=== PATIENT | female | born 1970 | race Caucasian/White ===

== ENCOUNTER 2021-08-02 13:58 | Emergency (ER) | payer MEDICARE, OTHER ==
[~2021-08-02] VITALS: Ht 165.1 cm; Wt 40.1 kg
[2021-08-02 14:11] VITALS: BP 136/89
--- NOTE | 2021-08-02 14:14 | PHYS DOC ---
Past History Past Medical History: Sinusitis, Other Past Surgical History: Tubal ligation Smoking: Cigarettes, Less than 1pk/day Alcohol Use: None Drug Use: Marijuana, Other General Adult HPI: HPI: Patient is a 51-year-old female coming in from home for shortness of breath. Patient has a history of end-stage COPD and was told she will need a double lung transplant. Patient was using her home inhaler without improvement. Is constantly on 2 to 5 L oxygen via concentrator. Patient does not had any recent sick contacts, illness, other triggers that would incite this. Last COPD exacerbation about 1 year ago. On EMS arrival patient was satting 88%, given a DuoNeb in route and states she is feeling some relief Review of Systems: Review of Systems: All other systems within normal limits except for as noted in the HPI Allergies: Allergies: Allergies Coded Allergies Type Severity Reaction Last Updated Verified No Known Drug Allergies 10/06/13 No Physical Exam: PE: Constitutional: Well developed, thin HENT: Normocephalic, atraumatic, bilateral external ears normal, nose normal. [] Eyes: PERRLA, conjunctiva normal, no discharge. [] Neck: No rigidity, supple, no stridor. [] Cardiovascular: Regular rate and rhythm, brisk cap refill [] Lungs & Thorax: Symmetric chest rise, tachypnea, bilateral diminished lung sounds without rhonchi or wheezes Abdomen: Soft, nondistended. Skin: Warm, dry, no erythema, no rash. [] Back: Unremarkable Extremities: No deformities, range of motion grossly intact, no lower extremity edema [] Neurologic: Alert and oriented X 3, no focal deficits noted. [] Psychologic: Affect normal, judgement normal, mood normal. [] EKG: EKG: [] Radiology/Procedures: Radiology/Procedures: [address] [address] IMAGING REPORT Signed PATIENT: LENY GUAN ACCOUNT: [id number] : 1970 LOCATION: ER AGE: 51 SEX: F EXAM STATUS: REG ER ORD. PHYSICIAN: VENKAT PARRISH MD REASON: copd PROCEDURE: CT CHEST WO CONTRAST EXAMINATION: CT Chest Without IV contrast. INDICATION:51 years, Female, COPD. COMPARISON: Same day chest radiograph. TECHNIQUE: Spiral CT was obtained from the jugular notch through the posterior costophrenic recess. Size of and coronal reformats were obtained. Exposure: One or more of the following individualized dose reduction techniques were utilized for this examination: 1. Automated exposure control 2. Adjustment of the mA and/or kV according to patient size 3. Use of iterative reconstruction technique. FINDINGS: LUNGS/PLEURA: Central airways are patent. Bilateral upper and right middle lobes are completely replaced by a large emphysematous bullae. Moderate to severe centrilobular and paraseptal pulmonary emphysema in the lower lobes. Diffuse groundglass opacities in the lower lobes, greater in the right. No definite pneumothorax. No pleural effusion. No suspicious pulmonary nodule. MEDIASTINUM: No pathologic mediastinal or hilar adenopathy. The thoracic aorta is normal in caliber. Enlarged pulmonary trunk measures up to 3.7 cm, compatible with arterial hypertension. The heart is normal in size. No pericardial effusion. No detectable calcified coronary atherosclerosis. The visualized thyroid and the esophagus are unremarkable. AXILLA/SOFT TISSUE: No supraclavicular or axillary adenopathy. Regional soft tissues are within normal limits. UPPER ABDOMEN: The visualized upper abdomen appears unremarkable, within the limitation of noncontrast exam. BONES: No evidence of acute fractures or aggressive osseous lesions. IMPRESSION: 1. Bilateral upper and right middle lobes are completely replaced by a large emphysematous bullae. No definite pneumothorax. 2. Moderate to severe centrilobular and paraseptal pulmonary emphysema in the lower lobes. 3. Diffuse groundglass opacities in the lower lobes, greater in the right. Findings are nonspecific but may be seen with pulmonary edema or atypical infection. 4. Enlarged pulmonary trunk, compatible with arterial hypertension. Electronically signed by: Patricio Coleman MD (08/02/2021 3:36 PM) [facility] DICTATED AND SIGNED BY: PATRICIO COLEMAN MD DATE: 08/02/21 1527 CC: VENKAT PARRISH MD; KP BOWERS PAC ~ [] Heart Score: C/O Chest Pain: No Risk Factors: Risk Factors: DM, Current or recent (<one month) smoker, HTN, HLP, family history of CAD, obesity. Risk Scores: Score 0 - 3: 2.5% MACE over next 6 weeks - Discharge Home Score 4 - 6: 20.3% MACE over next 6 weeks - Admit for Clinical Observation Score 7 - 10: 72.7% MACE over next 6 weeks - Early Invasive Strategies Course & Med Decision Making: Course & Med Decision Making Pertinent Labs and Imaging studies reviewed. (See chart for details) Patient placed on BiPAP, transferred to [facility], accepted by Dr. Ken. [] Dragtamara Disclaimer: Dragtamara Disclaimer: This electronic medical record was generated, in whole or in part, using a voice recognition dictation system. Departure Departure: Impression: Primary Impression: COPD (chronic obstructive pulmonary disease) Disposition: 02 SHORT TERM HOSPITAL Condition: GUARDED Referrals: LEX CROCKETT APRN (PCP) VENKAT PARRISH MD August 02, 2021 14:14
[2021-08-02] MEDS ORDERED: methylPREDNISolone SOD SUCC PF 125 MG/2 ML VIAL. IV ONE (14:15)
[2021-08-02] MEDS ORDERED: IV NORMAL SALINE 500ML 500 ML IV ONE (14:15)
--- NOTE | 2021-08-02 14:57 | RAD ---
EXAMINATION: Chest radiograph. VIEWS: Single AP view of the chest COMPARISON: None INDICATION:51 years, Female, COPD. FINDINGS: Normal cardiomediastinal silhouette. Extensive bilateral apical lucencies with volume loss of the mid dle and lower lobes. No pleural effusion. No acute osseous process. IMPRESSION: Findings suggestive of severe bilateral bullous emphysematous changes with passive atelectasis of aspen ateral lower lobes. Bilateral pneumothoraces is difficult to exclude radiographically. Recommend foll ow-up CT without IV contrast. These findings were discussed with Dr. Hunter at 08/02/2021 2:[address] Mc Electronically signed by: Kamari Mc DO (08/02/2021 2:54 PM) [id number]
--- NOTE | 2021-08-02 15:39 | RAD ---
EXAMINATION: CT Chest Without IV contrast. INDICATION:51 years, Female, COPD. COMPARISON: Same day chest radiograph. TECHNIQUE: Spiral CT was obtained from the jugular notch through the posterior costophrenic recess. S ize of and coronal reformats were obtained. Exposure: One or more of the following individualized dose reduction techniques were utilized for thi s examination: 1. Automated exposure control 2. Adjustment of the mA and/or kV according to patient size 3. Use of iterative reconstruction technique. FINDINGS: LUNGS/PLEURA: Central airways are patent. Bilateral upper and right middle lobes are completely repla blaine by a large emphysematous bullae. Moderate to severe centrilobular and paraseptal pulmonary emphys mary in the lower lobes. Diffuse groundglass opacities in the lower lobes, greater in the right. No de finite pneumothorax. No pleural effusion. No suspicious pulmonary nodule. MEDIASTINUM: No pathologic mediastinal or hilar adenopathy. The thoracic aorta is normal in caliber. Enlarged pulmonary trunk measures up to 3.7 cm, compatible with arterial hypertension. The heart is n ormal in size. No pericardial effusion. No detectable calcified coronary atherosclerosis. The visuali zed thyroid and the esophagus are unremarkable. AXILLA/SOFT TISSUE: No supraclavicular or axillary adenopathy. Regional soft tissues are within el l limits. UPPER ABDOMEN: The visualized upper abdomen appears unremarkable, within the limitation of noncontras t exam. BONES: No evidence of acute fractures or aggressive osseous lesions. IMPRESSION: 1. Bilateral upper and right middle lobes are completely replaced by a large emphysematous bullae. N o definite pneumothorax. 2. Moderate to severe centrilobular and paraseptal pulmonary emphysema in the lower lobes. 3. Diffuse groundglass opacities in the lower lobes, greater in the right. Findings are nonspecific but may be seen with pulmonary edema or atypical infection. 4. Enlarged pulmonary trunk, compatible with arterial hypertension. Electronically signed by: Nae Coleman MD (08/02/2021 3:36 PM) [facility]
[2021-08-02 15:51] LABS: BASO % 0 % (0-3); EOS % 0 % (0-3); HEMATOCRIT 38.2 % (36.0-47.0); HEMOGLOBIN 12.4 g/dL (12.0-15.5); LYMPH # 1.1 x10^3/uL (1.0-4.8); LYMPH % 18 % (24-48); MEAN CORPUSCULAR HEMOGLOBIN 32 pg (25-35); MEAN CORPUSCULAR HGB CONC 33 g/dL (31-37); MEAN CORPUSCULAR VOLUME 97 fL (79-100); MONO # 0.6 x10^3/uL (0.0-1.1); MONO % 10 % (0-9); NEUT # 4.2 x10^3uL (1.8-7.7); NEUT % 71 % (31-73); PLATELET COUNT 171 x10^3/uL (140-400); RED BLOOD COUNT 3.92 x10^6/uL (3.50-5.40); RED CELL DISTRIBUTION WIDTH 12.4 % (11.5-14.5); WHITE BLOOD COUNT 5.9 x10^3/uL (4.0-11.0)
[2021-08-02 16:09] LABS: BLOOD UREA NITROGEN 18 mg/dL (7-20); BUN/CREATININE RATIO 30 (6-20); CALCIUM 8.9 mg/dL (8.5-10.1); CHLORIDE 90 mmol/L (98-107); CREATININE 0.6 mg/dL (0.6-1.0); GFR 105.8; GLUCOSE 139 mg/dL (70-99); POTASSIUM 3.7 mmol/L (3.5-5.1); SODIUM 142 mmol/L (136-145)
[2021-08-02 16:10] LABS: ANION GAP 7 (6-14); CARBON DIOXIDE > 45 mmol/L (21-32)
[2021-08-02 16:25] LABS: ALBUMIN 3.7 g/dL (3.4-5.0); ALBUMIN/GLOBULIN RATIO 0.9 (1.0-1.7); ALK PHOS 44 U/L (46-116); ALT (SGPT) 28 U/L (14-59); AST (SGOT) 20 U/L (15-37); TOTAL BILIRUBIN 0.7 mg/dL (0.2-1.0); TOTAL PROTEIN 7.9 g/dL (6.4-8.2)
[2021-08-02 16:26] LABS: MAGNESIUM 2.1 mg/dL (1.8-2.4)
[2021-08-02 17:51] LABS: INFLUENZA A PATIENT NEGATIVE (NEGATIVE); INFLUENZA B PATIENT NEGATIVE (NEGATIVE)
== END 2021-08-02 18:15 | disposition short-term general hospital (02) ==
LOC: ER 13:58
DX: J44.9 Chronic obstructive pulmonary disease, unspecified (principal); F17.210 Nicotine dependence, cigarettes, uncomplicated; Z20.822 Contact with and (suspected) exposure to COVID-19
CPT/HCPCS: 71045; 71250; 80053; 82803; 83735; 83880; 84484; 85025; 85379; 87040; 87077; 87186; 87428; 93005; 96361; 96365; 96375; 99285; C9803; J1956; J2930; J7040; U0003